=== PATIENT | female | born 1945 | race Caucasian/White ===

== ENCOUNTER 2022-01-11 14:38 | Emergency (ER) | payer BC, MEDICARE | END 2022-01-11 16:53 | disposition home or self-care (01) | LOC: JP.ED 14:38 | DX: G45.4 Transient global amnesia (principal); I10 Essential (primary) hypertension; E78.00 Pure hypercholesterolemia, unspecified; Z88.2 Allergy status to sulfonamides; Z79.82 Long term (current) use of aspirin; Z79.899 Other long term (current) drug therapy | CPT/HCPCS: 81001; 99282; 99284 ==